=== PATIENT | male | born 1945 | race Caucasian/White ===

== ENCOUNTER → 2016-11-20 | Outpatient (CLI) | payer OTHER ==
[~2016-11-20] MED LIST: ASPEC325 PO; IBUP-1050 PO; MISC1CAP60 PO; PRLSR20 PO; [UNRECOGNIZED DRUG - OTHER] PO
== END | disposition home or self-care (01) ==
LOC: C.PATHSPEC 09:36
PROVIDERS: ATTEND Family Medicine
DX: L98.9 Disorder of the skin and subcutaneous tissue, unspecified (principal)

== ENCOUNTER → 2017-04-02 | Outpatient (CLI) | payer OTHER ==
[~2017-04-02] MED LIST changes: -IBUP-1050 PO
--- NOTE | 2017-04-02 16:27 | DIAGNOSTIC IMAGING REPORT ---
MRI OF THE RIGHT KNEE CLINICAL HISTORY: Right knee effusion. COMPARISON STUDY: No priors. TECHNIQUE: MRI of the right knee was performed utilizing proton density, T1, and T2-weighted sequences in the axial, sagittal, coronal planes. IV contrast was not administered for this examination. Note that interpretation is suboptimal without plain film correlate. FINDINGS: Menisci: There is a large bucket-handle tear involving the body and posterior horn of the medial meniscus. The fragment is flipped posteriorly within the joint space, best seen on sagittal image #16. There is medial extrusion of the meniscus. There is mucoid degeneration versus intrasubstance tearing seen involving the posterior horn of the lateral meniscus. Ligaments: The anterior and posterior cruciate ligaments are intact. There is mild thickening and irregularity of the medial collateral ligament. Fluid is seen on both sides of the ligament suggesting grade 1 injury. The lateral collateral ligament complex is intact. Extensor mechanism: The extensor mechanism is intact. There is mild nonspecific edema within Hoffa's fat pad. Articular cartilage and bone: There is approximately 50% thinning of the articular cartilage along the weightbearing surface in the medial compartment. There are foci of nearly full-thickness cartilage loss posteriorly with subchondral cyst formation as well as reactive marrow edema within the medial femoral condyle and the medial tibial plateau. There is only minimal degenerative narrowing of the articular cartilage in the lateral compartment. There is minimal chondromalacia patella, with less than 50% thinning of the articular cartilage at the patellar apex. There is no MRI evidence of fracture. Cystic degenerative changes also seen within the lateral femoral condyle. Joint effusion: There is a large joint effusion. Soft tissues: There is superficial and deep soft tissue edema identified around the knee. The musculature surrounding the knee joint is normal in bulk and signal intensity. A multiloculated popliteal cyst measures up to 4.4 cm. IMPRESSION: 1. Large joint effusion. 2. There is a large bucket-handle type tear involving the body and posterior horn of the medial meniscus as above. The fragment is flipped posteriorly within the joint space. 3. There is mucoid degeneration versus intrasubstance tearing seen involving the posterior horn of the lateral meniscus. 4. Suspect grade 1 injury of the medial collateral ligament. 5. Arthritic change in the compartment with associated reactive marrow edema as above. 6. Popliteal cyst. Electronically signed by: Abdirashid Singh M.D. 04/02/2017 4:26 PM Dictated Date/Time: 04/02/2017 4:16 PM
== END | disposition home or self-care (01) ==
LOC: C.MRIBC 15:26
PROVIDERS: ATTEND Family Medicine
DX: M25.461 Effusion, right knee (principal); S83.211A Bucket-handle tear of medial meniscus, current injury, right knee, initial encounter; X58.XXXA Exposure to other specified factors, initial encounter; M17.11 Unilateral primary osteoarthritis, right knee; M71.21 Synovial cyst of popliteal space [Baker], right knee

== ENCOUNTER → 2017-05-28 | Outpatient (CLI) | payer OTHER ==
[~2017-05-28] MED LIST changes: +ASPI-435 PO; +IBUP-1050 PO; +KETO10TA PO; -MISC1CAP60 PO; +OXYC-57 PO; -PRLSR20 PO; -[UNRECOGNIZED DRUG - OTHER] PO
[2017-05-28 18:23] LABS: HEMATOCRIT 40.8 % (42-52); MEAN CELL VOLUME 85.9 fL (80-100); MEAN CORPUSCULAR HEMOGLOBIN 30.3 pg (25-34); MEAN CORPUSCULAR HGB CONC 35.3 g/dl (32-36); MEAN PLATELET VOLUME 9.3 fL (7.4-10.4); PLATELET COUNT 273 K/uL (130-400); RED BLOOD COUNT 4.75 M/uL (4.7-6.1); WHITE BLOOD COUNT 7.79 K/uL (4.8-10.8)
== END | disposition home or self-care (01) ==
LOC: C.LABMFLN 11:21
PROVIDERS: ATTEND Orthopaedic Surgery Sports Medicine
DX: Z01.818 Encounter for other preprocedural examination (principal)

== ENCOUNTER → 2017-05-30 | Day surgery (SDC) | payer OTHER ==
[2017-05-15 08:40] VITALS: Ht 170.2 cm; Wt 78.6 kg
[~2017-05-30] VITALS: Ht 170.2 cm; Wt 78.6 kg
[~2017-05-30] MED LIST changes: +ATROPINE SULFATE 0.1 MG/ML 5ML SYR IV PRN; +CLINDAMYCIN PHOS 150 MG/ML 2 ML VIAL IV SCH; +EpHEDrine SULFATE INJ 50 MG/ML AMP IV PRN; +EpINEphrine INJ 1MG/ML AMP 1 MG/ML AMP ONE; +FENTANYL CITRATE INJ 50 MCG/1 ML 2 ML VIAL IV PRN; +FENTANYL CITRATE INJ 50 MCG/1 ML 2 ML VIAL ONE; +KETOROLAC TROMETHAMINE 30 MG/ML VIAL ONE; +LACTATED RINGER'S 1000ML 1,000 ML IV SCH; +LIDOCAINE HCL 2% 2 ML VIAL (20MG/ML) ONE; +MIDAZOLAM HCL 1 MG/ML 2ML VIAL ONE; +ONDANSETRON INJ 2 MG/ML 2 ML VIAL IV PRN; +ONDANSETRON INJ 2 MG/ML 2 ML VIAL ONE; +OXYCODONE/ACETAMINOPHEN 5-325 TAB PO PRN; +PROMETHAZINE HCL INJ 6.25 MG in SODIUM CHLORIDE 0.9% 50ML 50 ML IV PRN; +PROPOFOL IV EMULSION 10 MG/ML 20 ML VIAL IV ONE; +ROPIVACAINE 0.5% 5 MG/ML 30 ML VIAL ONE; +SODIUM CHLORIDE 0.9% 1000ML 1,000 ML IV SCH
--- NOTE | 2017-05-30 08:27 | History & Physical Bridge - [place] ---
H&P Re-Evaluation Bridge Note: I have examined the patient, reviewed the History & Physical and in the interval since the performance of the History & Physical I have noted the following changes of clinical significance: No changes noted
--- NOTE | 2017-05-30 09:18 | Discharge Instructions-SurgCtr ---
Discharge Instructions Date of Service May 30, 2017. Visit Reason for Visit: Right Knee Medial Meniscus Tear Discharge Discharge Diagnosis / Problem: right medial meniscus tear, djd Discharge Goals Goal(s): Decrease discomfort, Improve function, Therapeutic intervention Activity Recommendations Activity Limitations: per Instructions/Follow-up section Weightbearing Status: Right weightbearing (as tolerated) Anesthesia . Post Anesthesia Instructions: If you have had General Anesthesia or IV Sedation: * Do not drive today. * Resume driving when surgeon permits. * Do not make important decisions or sign legal documents today. * Call surgeon for: 1. Temperature elevations greater than 101 degrees F. 2. Uncontrollable pain. 3. Excessive bleeding. 4. Persistent nausea and vomiting. 5. Medication intolerance (nausea, vomiting or rash). * For nausea and vomiting use only clear liquids such as: tea, soda, bouillon until nausea subsides, then gradually increase diet as tolerated. * If you have any concerns or questions, call your surgeon's office. If physician is unavailable and it is an emergency, call 911 or go to the nearest emergency room. . Instructions / Follow-Up Instructions / Follow-Up MEDICATIONS: * Resume previous medications unless instructed otherwise by your surgeon. * Always take pain medication on a full stomach or with food to avoid upset stomach. * Do not drink alcohol or drive while taking narcotics. * Ibuprofen or Tylenol may be taken if narcotic not needed. No ibuprofen while taking toradol SPECIAL CARE INSTRUCTIONS: __ None _x_ Keep extremity elevated and iced x 48 hours; apply ice 20-30 minutes 8-10 times/day. May remove at night. __ Crutches __ May discard when able __ Brace/Post-op shoe __ 24 hrs/day __ Remove at night _x_ Dressing __ Maintain until seen in office, may shower with plastic over site _x_ Remove dressings in 24-48 hours and then may shower _x_ Cover incisions with band-aids after showering __ Do not remove steri-strips Call physician if chills or temperature rises above 102 degrees or pain unrelieved by prescribed pain medications. Office [phone] follow up in 2 weeks Diet Recommendations Home Diet: resume previous diet Procedures Procedures Performed: Right Knee Arthroscopy, Partial Meniscectomy Pending Studies Studies pending at discharge: no Medical Emergencies . Who to Call and When: Medical Emergencies: If at any time you feel your situation is an emergency, please call 911 immediately. . Non-Emergent Contact Non-Emergency issues call your: Surgeon . . "Provider Documentation" section prepared by Mookie Goyal. .
--- NOTE | 2017-05-30 09:19 | [facility] Post Operative Brief Note ---
Immediate Operative Summary Operative Date May 30, 2017. Pre-Operative Diagnosis Right Knee Medial Meniscus Tear + DJD Post-Operative Diagnosis Same Procedure(s) Performed Right Knee Arthroscopy, Partial Meniscectomy Surgeon Dr. Ospina [employer] Clerk Surgeon(s) Evette Goyal PA-C Estimated Blood Loss Minimal Findings Right Knee Medial Meniscus Tear + DJD Specimens None Anesthesia General Complication(s) None Disposition Recovery Room / PACU
--- NOTE | 2017-05-30 09:43 | OPERATIVE REPORT ---
DATE OF OPERATION: 05/30/2017 SURGEON: Mars Ospina MD. [employer] GANG SUPERVISOR: KEARA Parra. PREOPERATIVE DIAGNOSES: 1. Right knee medial meniscus tear. 2. Right knee degenerative joint disease. POSTOPERATIVE DIAGNOSES: 1. Right knee degenerative medial meniscus tear. 2. Right knee degenerative joint disease with grade 4 changes of the medial femoral condyle and medial tibial plateau, grade 2 changes of patellofemoral joint and just very mild grade 1 changes laterally. PROCEDURE PERFORMED: 1. Right knee exam under anesthesia. 2. Right knee diagnostic arthroscopy. 3. Right knee arthroscopic partial medial meniscectomy. COMPLICATIONS: None. ESTIMATED BLOOD LOSS: Minimal. TOURNIQUET TIME: 22 minutes at 300 mmHg. OPERATIVE INDICATIONS: The patient is a 71-year-old male who has had several month history of fairly acute onset of right medial knee pain and discomfort. He has been through all kinds of extensive treatment including aspiration injection which have not provided adequate relief. He has been having trouble getting along and getting around. His x-rays revealed fairly mild versus moderate arthritic change in the medial compartment. MRI revealed extensive medial meniscus tear. The patient elected to proceed with knee arthroscopy. We did discuss this preoperatively and I told him there is probably a 50:50 chance this will make a significant difference in his knee pain. OPERATIVE FINDINGS: Examination under anesthesia of the right knee revealed a moderate sized knee effusion. Range of motion about 5-125. There was no instability. Americo's is negative for mechanical symptoms. ARTHROSCOPIC FINDINGS: Arthroscopic findings revealed a fairly large serous effusion. The undersurface of the patella and trochlea revealed some grade 2 changes. In the intercondylar notch, the ACL and PCL were intact. In the medial compartment, there was a very complex degenerative tear of the posterior horn of the medial meniscus. He had focal grade 4 changes of medial femoral condyle and medial tibial plateau. His lateral compartment revealed some age-related changes. OPERATIVE PROCEDURE: The patient taken to the operating room, identified and placed on the operating table in supine position. All contact areas were appropriately padded. IV antibiotics were provided by anesthesia team. A general anesthetic was implemented by anesthesia team. Right thigh tourniquet was then placed and the right lower extremity was then prepped and draped in the usual sterile fashion. The right leg was elevated and exsanguinated with an Esmarch and tourniquet was placed at 300 mmHg. Routine right knee arthroscopy was then performed through typical anteromedial and anterolateral portals. Supralateral outflow portal was established for outflow. I did resect some of the fat pad in order to adequately visualize the knee. With the use of a combination of motorized hand controlled instruments, a partial medial meniscectomy was then performed. We resected all these unstable portions of the meniscus back to stable tissue. I very lightly debrided the cartilage at the end of the medial femoral condyle and medial tibial plateau, but there was not much need for chondroplasty. He did have exposed areas of bone on both surfaces. Once this was complete, the arthroscopic instruments were placed throughout the knee joint. All extraneous debris was removed. The arthroscopic instruments were then removed from the joint and the portals were closed with 3-0 Prolene suture in a simple fashion. The knee was then injected with 30 mL of 0.5% Marcaine with epinephrine and 30 mg of Toradol. A sterile dressing with Xeroform, 4 x 4, sterile cast padding and Kaden bandage were applied. The tourniquet was then let down for a tourniquet time of 22 minutes. The patient then brought out of general anesthesia and transferred to the recovery room in stable condition. The patient tolerated the procedure without complications. All needle and sponge counts were correct at the end of the operation. I attest to the content of the Intraoperative Record and any orders documented therein. Any exceptions are noted below. GALLITO
[2017-05-30 10:31] VITALS: TEMP 36.4
[2017-05-30 11:01] VITALS: BP 123/68; PULSE 53; O2SAT 99
--- NOTE | 2017-05-30 11:32 | Anesthesiology Progress Note ---
Anesthesia Post Op Note Date & Time May 30, 2017 at 11:31 Vital Signs Pain Intensity: 1 Vital Signs Past 12 Hours Date Time Temp Pulse Resp B/P (MAP) Pulse Ox O2 Delivery O2 Flow Rate FiO2 05/30/17 11:01 53 16 123/68 (86) 99 Room Air 05/30/17 10:31 36.4 49 16 132/69 (90) 99 Room Air 05/30/17 10:25 54 13 98 05/30/17 10:25 54 13 05/30/17 10:23 36.3 48 12 131/68 98 Room Air 05/30/17 10:21 131/68 05/30/17 10:20 51 13 05/30/17 10:20 51 13 97 05/30/17 10:16 115/65 05/30/17 10:15 53 6 05/30/17 10:15 52 6 100 05/30/17 10:11 119/68 05/30/17 10:10 61 15 99 05/30/17 10:10 59 15 05/30/17 10:06 118/68 05/30/17 10:05 43 11 100 05/30/17 10:05 43 11 05/30/17 10:01 121/71 05/30/17 10:00 43 16 99 05/30/17 10:00 43 16 05/30/17 09:56 120/74 05/30/17 09:55 46 11 100 05/30/17 09:55 44 11 05/30/17 09:51 120/64 05/30/17 09:50 43 11 100 05/30/17 09:50 44 11 05/30/17 09:46 114/70 05/30/17 09:45 50 13 05/30/17 09:45 49 13 99 05/30/17 09:41 130/72 05/30/17 09:40 61 15 05/30/17 09:40 63 15 97 05/30/17 09:36 122/72 05/30/17 09:35 55 14 98 05/30/17 09:35 55 14 05/30/17 09:31 119/76 05/30/17 09:30 60 17 05/30/17 09:30 59 17 99 05/30/17 09:26 120/76 05/30/17 09:25 36.3 59 12 120/76 98 Mask 4 12/20/17 07:32 36.3 66 18 116/77 (90) 96 Room Air Notes Mental Status: alert / awake / arousable, participated in evaluation Nausea / Vomiting: adequately controlled Pain: adequately controlled Airway Patency, RR, SpO2: stable & adequate BP & HR: stable & adequate Hydration State: stable & adequate Anesthetic Complications: no major complications apparent
== END | disposition home or self-care (01) ==
LOC: X.SURG 07:17
PROVIDERS: ATTEND Orthopaedic Surgery Sports Medicine
DX: S83.241A Other tear of medial meniscus, current injury, right knee, initial encounter (principal); M17.11 Unilateral primary osteoarthritis, right knee; K21.9 Gastro-esophageal reflux disease without esophagitis; E78.00 Pure hypercholesterolemia, unspecified; K44.9 Diaphragmatic hernia without obstruction or gangrene; M19.90 Unspecified osteoarthritis, unspecified site; Z96.652 Presence of left artificial knee joint; X58.XXXA Exposure to other specified factors, initial encounter